=== PATIENT | female | born 1945 | race Two or more races ===

== ENCOUNTER 2017-09-30 09:25 | Outpatient (CLI) | payer OTHER | END 2017-09-30 09:35 | disposition home or self-care (01) | LOC: LAB 09:25 | DX: D63.1 Anemia in chronic kidney disease (principal); D63.8 Anemia in other chronic diseases classified elsewhere; N18.3 Chronic kidney disease, stage 3 (moderate); D51.3 Other dietary vitamin B12 deficiency anemia; I10 Essential (primary) hypertension; E03.8 Other specified hypothyroidism ==

== ENCOUNTER 2018-01-07 09:22 | Outpatient (CLI) | payer OTHER | END 2018-01-07 09:24 | disposition home or self-care (01) | LOC: LAB 09:22 | DX: D63.1 Anemia in chronic kidney disease (principal); D63.8 Anemia in other chronic diseases classified elsewhere; N18.3 Chronic kidney disease, stage 3 (moderate); D51.3 Other dietary vitamin B12 deficiency anemia; I10 Essential (primary) hypertension; E03.8 Other specified hypothyroidism; D51.8 Other vitamin B12 deficiency anemias; C90.00 Multiple myeloma not having achieved remission ==

== ENCOUNTER 2018-07-01 08:58 | Outpatient (CLI) | payer OTHER | END 2018-07-01 18:01 | disposition home or self-care (01) | LOC: LAB 08:58 | DX: D51.3 Other dietary vitamin B12 deficiency anemia (principal); D63.1 Anemia in chronic kidney disease; N18.3 Chronic kidney disease, stage 3 (moderate); I12.9 Hypertensive chronic kidney disease with stage 1 through stage 4 chronic kidney disease, or unspecified chronic kidney disease; I10 Essential (primary) hypertension; E03.8 Other specified hypothyroidism; D59.9 Acquired hemolytic anemia, unspecified; R97.0 Elevated carcinoembryonic antigen [CEA] ==

== ENCOUNTER 2018-07-06 10:43 | Outpatient (CLI) | payer OTHER | END 2018-07-06 10:48 | disposition home or self-care (01) | LOC: MAMO-SONO 10:43 | DX: Z12.31 Encounter for screening mammogram for malignant neoplasm of breast (principal); Z87.898 Personal history of other specified conditions; N64.89 Other specified disorders of breast; D51.3 Other dietary vitamin B12 deficiency anemia; D63.1 Anemia in chronic kidney disease; N18.3 Chronic kidney disease, stage 3 (moderate); I12.9 Hypertensive chronic kidney disease with stage 1 through stage 4 chronic kidney disease, or unspecified chronic kidney disease; I10 Essential (primary) hypertension; E03.8 Other specified hypothyroidism ==

== ENCOUNTER 2019-03-16 09:01 | Outpatient (CLI) | payer OTHER | END 2019-03-16 09:22 | disposition home or self-care (01) | LOC: LAB 09:01 | DX: E03.8 Other specified hypothyroidism (principal); D51.3 Other dietary vitamin B12 deficiency anemia; D63.1 Anemia in chronic kidney disease; N18.3 Chronic kidney disease, stage 3 (moderate); I12.9 Hypertensive chronic kidney disease with stage 1 through stage 4 chronic kidney disease, or unspecified chronic kidney disease; D50.8 Other iron deficiency anemias; D51.8 Other vitamin B12 deficiency anemias; K90.89 Other intestinal malabsorption; E78.2 Mixed hyperlipidemia ==